=== PATIENT | male | born 1965 | race Caucasian/White ===

== ENCOUNTER 2022-11-13 08:53 | Outpatient (CLI) | payer MEDICARE, SELFPAY ==
--- NOTE | ~2022-11-13 | MMUS_ITS ---
EXAMINATION: MM diagnostic jarrod LT w juan, US breast LT complete HISTORY: Left breast lump TECHNIQUE: Bilateral MLO and left CC 3-D tomosynthesis images were performed and synthetic 2-D images were generated. CAD analysis was submitted and interpreted. High resolution complete left breast ult rasound examination including all 4 quadrants and subareolar area was performed. COMPARISON: None BREAST PARENCHYMAL COMPOSITION: There are scattered areas of fibroglandular density. FINDINGS: MAMMOGRAPHIC FINDINGS: There is symmetric mild bilateral gynecomastia. No suspicious mass or architectural distortion, malig nant calcification, skin thickening or retraction of either breast is detected. ULTRASOUND: Mild subareolar fibroglandular tissue is noted. No suspicious vascularity or shadowing is detected. IMPRESSION: Mild bilateral gynecomastia; no mammographic or sonographic evidence of malignancy BI-RADS Category 2: Benign finding(s). Reviewed, dictated and finalized at location A. IMPRESSION: Mild bilateral gynecomastia; no mammographic or sonographic evidence of maligna ncy BI-RADS Category 2: Benign finding(s).
== END 2022-11-13 08:54 | disposition home or self-care (01) ==
LOC: CHSIMG 08:58
PROVIDERS: PCP Family Medicine
DX: N63.20 Unspecified lump in the left breast, unspecified quadrant (principal); N62 Hypertrophy of breast
CPT/HCPCS: 76641; 77061; 77065; G0279